=== PATIENT | male | born 2005 | race Caucasian/White ===

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

== ENCOUNTER 2023-11-23 12:50 | Emergency (ER) | payer MEDICAID, OTHER ==
[2023-11-23 13:15] LABS: BASOPHILS % (AUTO) 0.5 %; EOSINOPHILS % (AUTO) 0.3 %; HCT - HEMATOCRIT 44.9 % (42.0-52.0); HGB - HEMOGLOBIN 15.3 g/dL (14.0-18.0); LYMPHOCYTES # (AUTO) 1.7 10^3/uL (1.5-3.5); LYMPHOCYTES % (AUTO) 19.3 %; MEAN CORPUSCULAR HGB CONC 34.1 g/dL (32.0-36.0); MEAN PLATELET VOLUME 10.3 fL (7.4-11.4); MONOCYTES # (AUTO) 0.4 10^3/uL (0.0-1.0); MONOCYTES % (AUTO) 4.4 %; NEUTROPHILS # (AUTO) 6.6 10^3/uL (1.5-6.6); NEUTROPHILS % (AUTO) 75.3 %; PLT - PLATELET COUNT 301 10^3/uL (130-450); RED BLOOD COUNT 5.28 10^6/uL (4.70-6.10); RED CELL DISTRIBUTION WIDTH 12.4 % (12.0-15.0); WHITE BLOOD COUNT 8.8 x10^3/uL (4.8-10.8)
[2023-11-23 13:33] LABS: ACETAMINOPHEN 0.2 ug/mL; ALBUMIN 4.9 g/dL (3.2-5.5); ALBUMIN/GLOBULIN RATIO 1.6 (1.0-2.2); ALKALINE PHOSPHATASE 92 IU/L (42-121); ALT ALANINE AMINOTRANSFERASE 23 IU/L (10-60); AST ASPARTATE AMINOTRANSFERASE 19 IU/L (10-42); BILIRUBIN,TOTAL 0.6 mg/dL (0.2-1.0); BUN - BLOOD UREA NITROGEN 14 mg/dL (6-20); CARBON DIOXIDE - CO2 30 mmol/L (21-32); CHLORIDE 101 mmol/L (101-111); CREATININE 0.9 mg/dL (0.6-1.3); ETOH - ETHANOL < 10.0 mg/dL; GFR - MDRD 108 (>89); GLUCOSE 95 mg/dL (74-104); POTASSIUM 3.9 mmol/L (3.5-4.5); SODIUM 137 mmol/L (135-145)
[2023-11-23 13:36] LABS: LIPASE < 10 U/L (11-82)
[2023-11-23 13:37] LABS: SALICYLATE < 1.5 mg/dL
[2023-11-23 13:45] LABS: THYROID STIMULATING HORMONE 1.64 uIU/mL (0.34-5.60)
[2023-11-23 15:10] LABS: BILIRUBIN,URINE NEGATIVE (NEGATIVE); GLUCOSE, URINE (UA) NEGATIVE (NEGATIVE); KETONES,URINE (UA) NEGATIVE (NEGATIVE); LEUKOCYTE ESTERASE, URINE NEGATIVE (NEGATIVE); NITRITE,URINE NEGATIVE (NEGATIVE); OCCULT BLOOD,URINE NEGATIVE (NEGATIVE); PROTEIN,URINE NEGATIVE (NEGATIVE); UROBILINOGEN,URINE 0.2 (NORMAL) E.U./dL (NORMAL)
[2023-11-23 15:11] LABS: CLARITY,URINE CLEAR (CLEAR)
[2023-11-23 15:24] LABS: AMPHETAMINE SCREEN,URINE NEGATIVE (NEGATIVE); BARBITURATE SCREEN,UR NEGATIVE (NEGATIVE); BENZODIAZEPINES SCREEN, URINE NEGATIVE (NEGATIVE); BUPRENORPHINE SCREEN, URINE NEGATIVE (NEGATIVE); COCAINE SCREEN URINE NEGATIVE (NEGATIVE); METHADONE SCREEN, URINE NEGATIVE (NEGATIVE); METHAMPHETAMINES SCREEN, URINE NEGATIVE (NEGATIVE); OPIATE SCREEN, URINE NEGATIVE (NEGATIVE); OXYCODONE SCREEN, URINE NEGATIVE (NEGATIVE); THC CANNABINOID SCREEN, URINE NEGATIVE (NEGATIVE); TRICYCLIC ANTIDEPRESSANT,URINE NEGATIVE (NEGATIVE)
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
--- NOTE | 2023-11-23 17:02 | TELEPSYCH PHYS NOTE ---
[facility] Consult Consult Date: 11/23/23 Name of Referring Provider:: Flori Reason for Consult: No consult question listed - Suicide Risk Sreening (ASQ Tool) In the past few weeks, have you wished you were ?: No In the past few weeks, have you felt that you or your family would be better off if you were ?: No In the past week, have you been having thoughts about killing yourself?: No Have you ever tried to kill yourself?: No - Assessment Language: Turkish Change Management Specialist Required: No Suicide Ideation - Homicide Ideation - Self Harm: Denies Psychiatric History - Treatment History: Denies Community Resources Accessed: Family Family Psych History/ History of suicide: See note Nutritional Status: No nutritional concerns - Medication & Allergies Home Medications: Ambulatory Orders Medication Instructions Recorded Confirmed No Known Home Medications 11/23/23 11/23/23 Allergies/Adverse Reactions: Allergies Allergy/AdvReac Type Severity Reaction Status Date / Time amoxicillin Allergy Intermediate Respiratory Verified 11/23/23 12:57 - Drug & Alcohol History Does patient have Drug/ETOH history or addictive behavior?: No - Trauma Does the patient have a history of trauma, abuse, neglect or explotation?: No - Personal Information Does the patient have a history or present tendencies for violence?: None Services History: N Does patient have any Legal Charges or Investigations?: Yes Environment & Living Situation - Social, Peer-Group (Note): At home Environment & Living Situation - Social, Peer-Group (Notes): Home with mother, father, sister Marital Status - Family Circumstances: Single Stressors - Financial Concerns: HPI Education: HS Occupation: [email or web address] Collateral - Interdisciplinary Input: Mother present on interview - Medical History Psychiatric: reports: None, Depression Neurological: reports: None Eyes, Ears, Nose, Throat: reports: None Cardiovascular: reports: None Respiratory: reports: Pneumonia Gastrointestinal: reports: GERD Urinary: reports: None TURF KEEPER: reports: None Musculoskeletal: reports: None Skin: reports: None, Other - Family & Social History Family History Comment/Other: No history of suicide Living Situation: With family - Mental Status Exam Appearance and Attire: Appropriately dressed and groomed with adequate hygeine Attitude and Behavior: Cooperative Speech: RRR with normal language Affect and Mood: Mood is anxious, affect consistent Association and Thought Process: Logical, intact Thought Content: No SI or HI Cartoon-like imaginary violence about unspecified, non-targeted animals that are bothersome and unwanted by patient Perception: Not attending Sensorium, memory and orientation: Alert, oriented, clear Intellectual - Cognitive functioning: Normal range Insight and Judgement: Fair and fair Emotional and Behavioral Functioning: Mild deterioration from known/est baseline Ability to Self-Care: Age appropriate - Personal Goals Short-term Goals: Medication Long-term Goals: Recovery - Risk/Protective Factors Risk Factors: N/A Protective Factors / Internal: N/A Protective Factors / External: N/A - Plan Impression/Risk Assessment: Adjustment Disorder Treatment - Therapy Recommendations: This is a very pleasant 18M with no formal psychiatric history presenting with acute anxiety, intrusive thoughts, and sleep disturbance in the context of clearly identified acute stressor at work. He is not suicidal, homicidal, manic, or psychotic, but is having unwanted intrusive thoughts of harming animals. No targets identified, he has been nothing but appropriate with pets at home, and has no desire to act on these thoughts. He participates well in safety planning and would like to get established with outpatient mental health care. I am unfamiliar with local traditions at this location, ie-whether ED providers are generally comfortable initiating outpatient mental health prescriptions or prefer such recs be deferred to outpatient prescribers, and discussed this with patient, but that I would make an initial recommendation for medication if ED providers are agreeable. Medication rec: Mirtazepine 15mg nightly, adequate supply to last until patient can realistically achieve follow up with either PCP or newly established MH provider. Pharmacological Recommendations: Mirtazepine 15mg nightly - Time Spent & Provider Location List names and roles of persons who participated in consult: Kamala Gaona MD Telepsych Provider Location: [place], [place] Time Spent (Minutes): 30 Chief Complaint - Chief Complaint Chief Complaint: Anxiety History of Present Illness - General Chief Complaint: MHE Stated Complaint: MHE Source: patient, family Exam Limitations: no limitations - History of Present Illness Initial Comments: "I've been depressed the past 3 weeks". States he has been having trouble sleeping for about the last 3 days. He is having intrusive thoughts about harming animals. It's new for him. No specific animals or target, just general thoughts. Mom says they have a tortoise, snake, puppy, other pets. He was playing with pets this morning, said he would never hurt them and loves them. Has no history of harming animals or others. He is eating fine. He is feeling depressed. He did have an incident at work about 3 weeks ago where he sold alcohol to a minor, it was a bust apparently and he failed. They told him a report would go to police and then to prosecutors' office. 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 He did get a 5 day suspension but has not gotten any letters about further problems. Mom says he woke them up at like 2am to talk to them about everything. He stayed in the room with her and had a good cry, felt better afterward. He's not had any thoughts of hurting himself or other people. Mom says he has OCD and rumination worries at baseline, worries about harming himself but doesn't usually do such things. He's been at the job for 2 years, never been in trouble with anyone for any reason. He is interested in medication for sleep and anxiety. He wants to do outpatient mental health care with medications. Discussed risks benefits of mirtazepine for sleep and anxiety. Reports this is first psychiatric contact. No hospitalizations, No Suicide attempts. No medication trials. Mom reports that father had depression/anxiety issues, sister has history of suicide attempt and follows with psych, and paternal grandmother was diagnosed with Bipolar 4 years ago. Working at [email or web address] for 2 years. Graduated highschool. Lives at home with mom, dad, sister. Gets along with them well. No alcohol or illegal drugs. Never no children. No other legal problems besides this recent trouble. Timing/Duration: week Severity: moderate Associated Symptoms: other Allergies/Adverse Reactions: Allergies amoxicillin Allergy (Intermediate, Verified 11/23/23 12:57) Respiratory Home Medications: Ambulatory Orders No Known Home Medications 11/23/23
[2023-11-23 18:29] VITALS: BP 119/70; O2SAT 98
== END 2023-11-23 18:24 | disposition home or self-care (01) ==
LOC: ED 12:50
DX: F41.9 Anxiety disorder, unspecified (principal); G47.9 Sleep disorder, unspecified; F42.9 Obsessive-compulsive disorder, unspecified; Z81.8 Family history of other mental and behavioral disorders
CPT/HCPCS: 36415; 80053; 80143; 80179; 80306; 81003; 82077; 83690; 83735; 84443; 85025; 87635; 99284; 99285; Q3014; 81001; 87086